=== PATIENT | female | born 1980 | race African-American/Black ===

== ENCOUNTER 2021-12-24 06:23 | Emergency (ER) | payer MEDICAID ==
[~2021-12-24] VITALS: Ht 180.3 cm; Wt 75.0 kg
[2021-12-24] MEDS ORDERED: ACETAMINOPHEN WITH CODEINE 300/30MG TABLET PO ONE (08:15)
[2021-12-24] MEDS ORDERED: LIDOCAINE HCL/PF 1% 10 MG/ML 5ML VIAL INFIL ONE (08:15)
[2021-12-24 09:19] VITALS: BP 120/81
== END 2021-12-24 09:19 | disposition home or self-care (01) ==
LOC: ER 06:23
DX: N75.0 Cyst of Bartholin's gland (principal)
CPT/HCPCS: 10080; 99284; J3490

== ENCOUNTER 2022-02-28 08:40 | Emergency (ER) | payer MEDICAID ==
[~2022-02-28] VITALS: Ht 180.3 cm; Wt 73.0 kg
[2022-02-28 08:51] VITALS: BP 119/78
[2022-02-28] MEDS ORDERED: BACITRACIN ZINC OINT UDPKT TOP ONE (09:15)
[2022-02-28] MEDS ORDERED: LIDOCAINE HCL/EPINEPHRINE 1%-EPI 1:100,000 20 ML VIAL INFIL ONE (09:15)
[2022-02-28] MEDS ORDERED: ETHYL CHLORIDE CAN TOP SCH (09:30)
[2022-02-28] MEDS ORDERED: CLIN-194 MT (10:02)
[2022-02-28] MEDS ORDERED: IBUPROFEN 800MG TABLET PO ONE (10:15)
== END 2022-02-28 10:31 | disposition home or self-care (01) ==
LOC: ER 08:40
DX: N75.0 Cyst of Bartholin's gland (principal); F17.200 Nicotine dependence, unspecified, uncomplicated; Z98.890 Other specified postprocedural states
CPT/HCPCS: 56420; 99284; J3490

== ENCOUNTER 2022-09-04 05:03 | Emergency (ER) | payer MEDICAID ==
[~2022-09-04] VITALS: Ht 180.3 cm; Wt 73.0 kg
[~2022-09-04 05:03] MED LIST: CEPH500C2 MT; CLIN-194 MT; HYDR-4001 MT; IBUP-2029 PO; SULF1TAB48 PO
[2022-09-04 05:07] VITALS: BP 113/72
[2022-09-04] MEDS ORDERED: CLIN-194 MT (06:04)
[2022-09-04] MEDS ORDERED: HYDR-4001 MT (06:04)
[2022-09-04] MEDS ORDERED: IBUP-2029 MT (06:04)
== END 2022-09-04 06:25 | disposition home or self-care (01) ==
LOC: ER 05:26
DX: N75.1 Abscess of Bartholin's gland (principal)
CPT/HCPCS: 56420; 81025; 99284; Z7610

== ENCOUNTER 2023-06-04 23:34 | Emergency (ER) | payer MEDICAID ==
[~2023-06-04] VITALS: Ht 175.3 cm; Wt 90.0 kg
[~2023-06-04 23:34] MED LIST changes: +IBUP-2029 MT
[2023-06-04 23:41] VITALS: BP 134/86; PULSE 103; RESP 20; TEMP 98.1; O2SAT 99
[2023-06-05] MEDS ORDERED: LIDOCAINE HCL/PF 1% 10 MG/ML 5ML VIAL INFIL ONE (01:45)
[2023-06-05] MEDS ORDERED: BACITRACIN ZINC OINT UDPKT TOP ONE (01:45)
[2023-06-05] MEDS ORDERED: TETANUS, DIPHTHERIA, PERTUSSIS VAC/PF 0.5ML (>10YR OLD) IM ONE (01:45)
[2023-06-05] MEDS ORDERED: HYDROCODONE/ACETAMINOPHEN 5/325MG TABLET PO ONE (01:45)
[2023-06-05] MEDS ORDERED: SULF1TAB48 MT (03:56)
[2023-06-05] MEDS ORDERED: AMOX1TAB16 MT (03:56)
== END 2023-06-05 04:18 | disposition home or self-care (01) ==
LOC: ER 23:34
DX: N75.1 Abscess of Bartholin's gland (principal); Z79.899 Other long term (current) drug therapy
CPT/HCPCS: 10060; 99283; 90715; 90471; J3490; Z7610 ×3